=== PATIENT | female | born 1985 | race Caucasian/White ===

== ENCOUNTER → 2023-12-12 13:53 | Outpatient (BNVA) | payer SELFPAY | DX: F31.9 Bipolar disorder, unspecified (principal); F41.9 Anxiety disorder, unspecified | CPT/HCPCS: 85025 ==

== ENCOUNTER 2024-03-03 10:05 | Emergency (ER) | payer MEDICAID, SELFPAY ==
--- NOTE | 2024-03-03 10:10 | XR_ITS ---
WS: [id number] Exam: XR shoulder LT min 2V* [id number] Date/Time of Exam: 03/03/2024 10:21 AM Reason For Exam: injury No fracture or dislocation. The joints appear relatively well-maintained as visualized. Normal soft t issues. XR/XR shoulder LT min 2V* [id number] IMPRESSION: 1. No fracture or other significant finding.
[2024-03-03 10:13] VITALS: BP 144/104; PULSE 80; RESP 18; TEMP 36.4; O2SAT 98; BMI 36.0
[2024-03-03] MEDS: methocarbamol 750 mg Tablet 1500 MG PO (10:24)
[2024-03-03] MEDS: HYDROcodone-acetaminophen 7.5-325 mg Tablet 1 TAB PO (10:24)
--- NOTE | 2024-03-03 10:28 | ED_ITS ---
HPI - Extremity Problem General: Chief complaint: Extremity Injury, Upper Stated complaint: lt shoulder inj Time Seen by Provider: 03/03/24 10:15 Source: patient Mode of arrival: ambulatory Limitations: no limitations History of Present Illness: 38-year-old female states that she had p ulled her baby in bed today with her left arm states she started having some pain in her shoulder after that this was earlier in the week she states that the pain is continue to worsen she states its much worse when she moves her arm or palpates over her shoulder. The pain currently is a 4 out of his improved with rest. Denies any chest pain or shortness of breath Associated symptoms: Deny chest pain, fever(s) or rash Related Data Previous Rx's Medication Instructions Recorded fluoxetine 10 mg capsule (Prozac) 10 mg PO BID #60 caps 12/12/23 lamotrigine 25 mg tablet (Lamictal) 25 mg PO DAILY #30 tabs 12/12/23 methocarbamol 750 mg tablet 750 mg PO Q6H PRN spasms #20 tabs 03/03/24 naproxen 500 mg tablet (Naprosyn) 500 mg PO BID PRN pain #20 tabs 03/03/24 Allergies Allergy/AdvReac Type Severity Reaction Status Date / Time Penicillins Allergy Severe ALGY-Anaphy Verified 12/12/23 13:14 laxis fluconazole [From Diflucan] Allergy Intermediate Swelling Verified 12/12/23 13:14 nitrofurantoin Allergy Intermediate Swelling Verified 12/12/23 13:14 [From Macrobid] propoxyphene [From Darvon] Allergy Intermediate Unknown Verified 12/12/23 13:14 sulfamethoxazole Allergy Intermediate heart rate Verified 12/12/23 13:14 [From Bactrim] tramadol [From Ultram] Allergy Intermediate Unknown Verified 12/12/23 13:14 trimethoprim [From Bactrim] Allergy Intermediate heart rate Verified 12/12/23 13:14 DEPT Vaccine Allergy Severe ADR-Seizure Uncoded 12/12/23 13:14 Review of Systems Const: Denies: fever(s), chills, body aches or change in appetite ENMT: Denies: throat pain or dental pain Card: Denies: chest pain Resp: Denies: dyspnea GI: Denies: abdominal pain, nausea, vomiting or diarrhea Musc: Reports: extremity pain; Denies: neck pain or back pain Skin/Breast: Denies: rash Neuro: Denies: headache(s) PFSH ED PFSH: Medical History Cervical cancer 2005. Lletz, remission since. Hyperlipidemia Hypertension PTSD (post-traumatic stress disorder) Anxiety Bipolar disorder (manic depression) Psychiatric care Surgical History H/O laminectomy History of cholecystectomy H/O spinal fusion Family History Father Cancer Skin Social History Smoking and tobacco/nicotine status: current every day tobacco/nicotine user cigarettes Packs smoked per day: 1 Years cigarettes smoked: 22 Alcohol intake: never Substance/Drug Use: never Adopted: No service: No Current occupational exposures/hazards: No Physical Exam Const: COMMON NORMALS: no acute distress, patient oriented x3 and healthy ap pearing HENMT: COMMON NORMALS: normocephalic and atraumatic HEAD & SCALP: normocephalic and atraumatic Eye: COMMON NORMALS: Equal, round and reactive pupils present and EOMs intact bilaterally PUPIL: Yes Equal, round and reactive pupils present Neck/C-Spine: COMMON NORMALS: full ROM and supple Chest: COMMONS NORMALS: normal inspection of the chest Resp: COMMON NORMALS: normal respiratory effort, No retractions, No use of accessory muscles and clear to auscultation bilaterally AUSCULTATION: clear to auscultation bilaterally Cardio: COMMON NORMALS: regular rate, regular rhythm and No murmurs present (Cardio) RATE: regular rate RHYTHM: regular rhythm GI: COMMON NORMALS: Normal to inspection, nondistended, normoactive bowel sounds present, Soft to palpation, non-tender and no masses PALPATION: Yes Soft to palpation Extremity: COMMON NORMALS: full ROM NARRATIVE EXTREMITY EXAM: Tenderness over left shoulder no obvious deformity distal pulses sensation intac t Neuro: COMMON NORMALS: patient oriented x3, moves all extremities and no focal motor deficits Psych: COMMON NORMALS: mental status grossly normal, Normal thought process present and cooperative THOUGHT PROCESS: Normal thought process present Skin: COMMON NORMALS: no rashes or lesions noted and no wounds GENERAL SKIN EXAM: no rashes or lesions noted Course Vital Signs: Vital signs: Vital Signs Temperature 97.6 F 03/03/24 10:13 Pulse Rate 80 03/03/24 10:13 Respiratory Rate 18 03/03/24 10:13 Blood Pressure 144/104 03/03/24 10:13 Pulse Oximetry 98 03/03/24 10:13 Oxygen Delivery Me thod Room Air 03/03/24 10:13 MDM - Extremity (Nontraumatic) Medical Decision Making Patient presents here with a shoulders pain to her left shoulder is likely a sprain or muscle spasm x-ray shows no fracture we will start her on anti- inflammatories along with muscle relaxants she is to ice she stable for disch arge follow-up with PCP return if worsening Medical Records I reviewed the patient's medical records. Lab Data Radiology Impressions Shoulder X-Ray 03/03/24 10:10 IMPRESSION: 1. No fracture or other significant finding. All radiology interpretation(s) finalized by discharge Discharge Plan Discharge Patient Disposition: Home Clinical Impression: Sprain of left shoulder Qualifiers: Encounter type: initial encounter Condition: Stable Prescriptions: New methocarbamol 750 mg tablet 750 mg PO Q6H PRN (Reason: spasms) Qty: 20 0RF naproxen [Naprosyn] 500 mg tablet 500 mg PO BID PRN (Reason: pain) Qty: 20 0RF No Action lamotrigine [Lamictal] 25 mg tablet 25 mg PO DAILY Qty: 30 0RF fluoxetine [Prozac] 10 mg capsule 10 mg PO BID Qty: 60 0RF Rx Instructions: administer in the morning and at noon/midday Discharge Orders: Discharge ED (Routine); Ordered 03/03/24 Ordered By: Rico Krueger Referrals: Holly Canela NP [Primary Care Provider] - 4-7 days Discharge Diet: Advance as tolerated Discharge Activity: Resume usual activity Patient Instructions: Shoulder Sprain (ED) Coding Level of Care Code ED Director Medical Surgical for Adithya Kang
--- NOTE | 2024-03-03 10:31 | PC.PHAR ---
patient says she takes a clonazepam 1mg but its not on her list, I called the pharmacy and they have no record either
[2024-03-03 11:47] VITALS: BP 109/82; PULSE 78; O2SAT 95
== END 2024-03-03 11:48 | disposition home or self-care (01) ==
PROVIDERS: Emergency Provider Emergency Medicine
DX: S43.402A Unspecified sprain of left shoulder joint, initial encounter (principal); Z85.41 Personal history of malignant neoplasm of cervix uteri; E78.5 Hyperlipidemia, unspecified; I10 Essential (primary) hypertension; F17.210 Nicotine dependence, cigarettes, uncomplicated; X50.9XXA Other and unspecified overexertion or strenuous movements or postures, initial encounter
CPT/HCPCS: 73030; 99283

== ENCOUNTER → 2024-12-08 14:27 | Outpatient (BNVA) | payer OTHER, SELFPAY | PROVIDERS: Visit Provider Psychiatry & Neurology Psychiatry | DX: Z79.899 Other long term (current) drug therapy (principal) | CPT/HCPCS: 80061; 83036 ==

== ENCOUNTER 2025-01-21 12:04 | Emergency (ER) | payer MEDICAID, SELFPAY ==
[2024-12-09 15:06] VITALS: BP 121/93; BMI 36.3
[2025-01-21 12:08] VITALS: BP 125/86; PULSE 91; RESP 16; TEMP 36.4; O2SAT 96; BMI 34.4
--- NOTE | 2025-01-21 12:13 | CT_ITS ---
WS: [id number] CT HEAD NONCONTRAST HISTORY: Symptoms of acute stroke, right-sided numbness. TECHNIQUE: Contiguous axial imaging performed through the brain. Bone and soft tissue windows. Sagittal and coronal reformats reviewed. All CT scans at [facility] use at least one of these dose optimization techniques: automated exposure control; mA and/or kV adjustment per patient size (includes targeted exams where dose is matched to clinical indication); or iterative reconstruction. DLP: 1080.95 mGy COMPARISON: None available. No acute intracranial hemorrhage, midline shift or mass effect. No atrophy or prior infarcts or herniation. Ventricles: Normal size with no hydrocephalus. Very slight ectopia of the cerebellar tonsils. No Chiari malformation. Paranasal sinuses: Mucoperiosteal thickening extensively throughout the sphenoid sinuses, RIGHT greater than LEFT. Mild mucoperiosteal thickening in the posterior LEFT ethmoid air cells. No air-fluid levels. Mastoid air cells: Well pneumatized. Calvarium and scalp: Skull is intact with no soft tissue edema or swelling. CT/CT head thrombolytic [id number] IMPRESSION: 1. No acute intracranial hemorrhage or edema. 2. No prior infarct. 3. No significant small vessel disease. 4. Sphenoid and ethmoid sinus disease. Notified Fortino Minaya DO at 01/21/2025 12:36 PM.
--- NOTE | 2025-01-21 12:13 | ECG_ITS ---
[facility]: 2025-[facility]21 Pat Name: Nereida Ortega Department: Room: Gender: Female [employer] Claim Adjuster: : 1985 Requested By: Fortion Kincaid Order Number: [id number] Mariah MD: Sam Lyon M.D. Measurements Intervals [place] Rate: 82 P: 42 NV: 144 QRS: 44 QRSD: 86 T: 50 QT: 348 QTc: 408 Interpretive Statements SINUS RHYTHM No previous ECG available for comparison Electronically Signed On 01-21-2025 14:05:29 CDT by Sam Lyon M.D. [email or web address]
--- NOTE | 2025-01-21 12:22 | ED_ITS ---
HPI - Neuro Symptoms/Deficit 2 General: Chief Complaint: Weakness Stated Complaint: Possible Stroke Time Seen by Provider: 01/21/25 12:12 History of Present Illness: 39-year-old female presents to the emerg ency room complaining of bilateral upper extremity numbness. She had a stroke 20 some years ago. She states symptoms began last night she has no deficits on arrival she is awake alert active. She denies chest pain or abdominal pain no injury no recent falls or head injury she is not on any anticoagulants Associated symptoms: Deny chest pain Related Data Previous Rx's ?Medication ?Instructions ?Recorded fluoxetine 20 mg capsule (Prozac) 20 mg PO DAILY #30 c aps 12/21/24 hydroxyzine HCl 50 mg tablet 50 mg PO QID PRN itching/ anxiety 12/21/24 #120 tabs lamotrigine 25 mg tablet 25 mg PO DAILY #30 tabs 12/01 07/27 Allergies Allergy/AdvReac Type Severity Reaction Status Date / Time Penicillins Allergy Severe ALGY-Anaphy Verified 01/21/25 12:11 laxis fluconazole (From Diflucan) Allergy Intermediate Swelling Verified 01/21/25 12:11 nitrofurantoin (From Allergy Intermediate Swelling Verified 01/21/25 12:11 Macrobid) propoxyphene (From Darvon) Allergy Intermediate Unknown Verified 01/21/25 12:11 sulfamethoxazole (From Allergy Intermediate heart rate Verified 01/21/25 12:11 Bactrim) tramadol (From Ultram) Allergy Intermediate Unknown Verified 01/21/25 12:11 trimethoprim (From Bactrim) Allergy Intermediate heart rate Verified 01/21/25 12:11 diphtheria, pertussis, Allergy ADR-Seizure Verified 01/21/25 12:11 tetanus vacc ciprofloxacin (From Cipro) AdvReac Severe Rash & Verified 01/21/25 12:11 raised heart rate Review of Systems 2 Const: Denies: fever(s) or chills Card: Denies: chest pain Resp: Denies: dyspnea GI: Denies: abdominal pain : Denies: dysuria, urinary frequency or urinary urgency Musc: Denies: neck pain or back pain Skin/Breast: Denies: rash PFSH ED 2 PFSH: Medical History Cervical cancer 2005. Lletz, remission since. Hyperlipidemia Hypertension PTSD (post-traumatic stress disorder) Anxiety Bipolar disorder (manic depression) Psychiatric care Surgical History H/O laminectomy History of cholecystectomy H/O spinal fusion Family History Father Cancer Skin Social History Smoking and tobacco/nicotine status: current every day tobacco/nicotine user cigarettes Packs smoked per day: 1 Years cigarettes smoked: 22 Alcohol intake: never Substance/Drug Use: never Adopted: No Caregiver/support person: No Lives independently: No Household members: children Housing: Homeless Marital status: Single Number of children: 2 Highest education level completed: Associate Degree: Academic Program service: No Current occupational status: disabled Current occupational exposures/hazards: No Pets and animals: No Leisure activites: other Leisure activities details: nothing right now Sexually active: Yes Do you think of yourself as: Straight/Heterosexual Current gender identity: Female Special amanda needs: No Agree to transfusion: Yes NIH stroke score 2 NIHSS: Level Of Consciousness - 1a: 0 Level Of Consciousness Questions - 1b: Both Correct Level Of Consciousness Commands - 1c: Both Correct Best Gaze - 2: Normal Visual Cunningham - 3: No Visual Loss Facial Palsy - 4: N ormal Motor Arm Right - 5: No Drift Motor Arm Left - 5: No Drift Motor Leg Right - 6: No Drift Motor Leg Left - 6: No Drift Limb Ataxia - 7: A bsent Sensory - 8: Mild To Moderate Loss (Dorsum of left hand not on the palmar surface) Best Language - 9: No Aphasia Dysarthia - 10: Normal E xtinction And Inattention - 11: 0 Score: Total Score: 1 Physical Exam 2 Const: COMMON NORMALS: no acute distress GENERAL APPEARANCE: cooperative and comfortable ORIENTATION/CONSCIOUSNESS: Yes awake, Yes oriented to person, Yes oriented to place and Yes oriented to time HENMT: COMMON NORMALS: normocephalic, atraumatic and hearing grossly normal bilaterally HEAD & SCALP: normocephalic and atraumatic Resp: COMMON NORMALS: normal respiratory effort, No retractions, No use of accessory muscles and clear to auscultation bilaterally AUSCULTATION: clear to auscultation bilaterally Cardio: COMMON NORMALS: regular rate, regular rhythm and No murmurs present (Cardio) RATE: regular rate RHYTHM: regular rhythm GI: COMMON NORMALS: Soft to palpation and No hepatosplenomegaly present A USCULTATION: Yes normoactive bowel sounds PALPATION: Yes Soft to palpation, No Tenderness to palpation present (GI), No Guarding due to palpation present (GI) and Yes No hepatosplenomegaly present Extremity: COMMON NORMALS: normal to inspection, capillary refill normal, no clubbing, cyanosis or edema, no calf tenderness and no pedal edema Neuro: SENSORIUM/ORIENTATION: Yes oriented to person, Yes oriented to place and Yes oriented to time Skin: COMMON NORMALS: no rashes or lesions noted GENERAL SKIN EXAM: no rashes or lesions noted Course 2 Vital Signs: Vital signs: Vital Signs Temperature 97.6 F 01/21/25 12:08 Pulse Rate 78 01/21/25 17:30 Respiratory Rate 20 H 01/21/25 17:30 Blood Pressure 120/82 01/21/25 17:30 Pulse Oximetry 97 01/21/25 16:08 Oxygen Delivery Me thod Room Air 01/21/25 16:08 MDM - Neuro Symptoms/Deficit Medical Decision Making CT head negative. She had some numbness on the posterior aspect of her right hand but only in the area over the 1st and 2nd digit. No other deficits were noted. The remainder of her stroke exam was normal. Believe the 1 point that she gets on her NIH is probably more peripheral neuropathy. We are going to discharge patient however we are waiting for the remainder of her labs and she left AMA Medical Records I reviewed the patient's medical records. Lab Data I reviewed the patient's lab results. 01/21/25 12:37 01/21/25 12:[address] 01/21/25 12:13 IMPRESSION: 1. No acute intracranial hemorrhage or edema. 2. No prior infarct. 3. No significant small vessel disease. 4. Sphenoid and ethmoid sinus disease. Notified Fortino Minaya DO at 01/21/2025 12:36 PM. Laboratory Results WBC 12.94 10^3/uL (3.29-11.43) H 01/21/25 12:37 RBC 5.09 10^6/uL (3.85-5.65) 01/21/25 12:37 Hgb 15.10 g/dL (11.27-16.99) 01/21/25 12:37 Hct 44.2 % (36-47) 01/21/25 12:37 MCV 86.8 fl (85-98) 01/21/25 12:37 MCH 29.7 pg (27-33) 01/21/25 12:37 MCHC 34.2 g/dL (30-55) 01/21/25 12:37 RDW 12.5 % (12.1-15.1) 01/21/25 12:37 Plt Count 334 10^3/cmm (157-399) 01/21/25 12:37 MPV 9.0 fL (7.4-10.4) 01/21/25 12:37 Neut % (Auto) 55.4 % 01/21/25 12:37 Lymph % (Auto) 36.1 % 01/21/25 12:37 Dolores % (Auto) 6.9 % 01/21/25 12:37 Eos % (Auto) 0.8 % 01/21/25 12:37 Baso % (Auto) 0.4 % 01/21/25 12:37 Neut # (Auto) 7.18 10^3/uL (1.8-7.7) 01/21/25 12:37 Lymph # (Auto) 4.7 10^3/uL (0.8-4.8) 01/21/25 12:37 Dolores # (Auto) 0.9 10^3/uL (0.2-0.9) 01/21/25 12:37 Eos # (Auto) 0.1 10^3/uL (0.0-0.8) 01/21/25 12:37 Baso # (Auto) 0.1 10^3/uL (0.0-0.1) 01/21/25 12:37 Nucleated RBC % (auto) 0 % 01/21/25 12:37 Nucleated RBCs # 0.0 /100WBC 01/21/25 12:37 PT 15.60 SECONDS (12.1-14.9) H 01/21/25 12:37 INR 1.16 (0.8-1.2) 01/21/25 12:37 APTT 27.7 SECONDS (23.9-36.7) 01/21/25 12:37 Sodium 142 mmol/L (136-145) 01/21/25 12:37 Potassium 3.4 mmol/L (3.5-5.1) L 01/21/25 12:37 Chloride 108 mmol/L (98-107) H 01/21/25 12:37 Carbon Dioxide 23 mmol/L (22-29) 01/21/25 12:37 Anion Gap 14.4 (5-19) 01/21/25 12:37 BUN 12 mg/dL (6-20) 01/21/25 12:37 Creatinine 0.8 mg/dL (0.5-0.9) 01/21/25 12:37 GFR Calculation 79.4 mL/min (90-130) L 01/21/25 12:37 Glucose 103 mg/dL (65-115) 01/21/25 12:37 POC Glucose 121 mg/dL (70-110) H 01/21/25 12:24 Calculated Osmolality 294 mOsm/kg (285-295) 01/21/25 12:37 Calcium 8.9 mg/dL (8.5-10.5) 01/21/25 12:37 Total Bilirubin 0.3 mg/dL (0.15-1.2) 01/21/25 12:37 AST 19 U/L (0-32) 01/21/25 12:37 ALT 18 U/L (0-33) 01/21/25 12:37 Alkaline Phosphatase 72 U/L (35-105) 01/21/25 12:37 Total Protein 6.7 g/dL (6.6-8.7) 01/21/25 12:37 Albumin 4.0 g/dL (3.5-5.2) 01/21/25 12:37 Globulin 2.7 g/dL (1.3-4.6) 01/21/25 12:37 Urine Color Dark yellow (Yellow) A 01/21/25 12:46 Urine Appearance Cloudy (CLEAR) A 01/21/25 12:46 Urine pH 5.5 (5-7) 01/21/25 12:46 Ur Specific [place] 1.031 (1.005-1.030) H 01/21/25 12:46 Urine Protein 1+ (Negative) A 01/21/25 12:46 Urine Glucose (UA) Negative (Normal) 01/21/25 12:46 Urine Ketones Trace (Negative) 01/21/25 12:46 Urine Blood 2+ (Negative) A 01/21/25 12:46 Urine Nitrate Positive (Negative) A 01/21/25 12:46 Urine Bilirubin Negative (Negative) 01/21/25 12:46 Urine Urobilinogen 1.0 mg/dL (Negative) 01/21/25 12:46 Ur Leukocyte Esterase Trace (Negative) A 01/21/25 12:46 Urine RBC 21-50 /hpf (0-2) H 01/21/25 12:46 Urine WBC 0-5 /hpf (0-5) 01/21/25 12:46 Ur Squamous Epith Cells 0-5 /hpf (0-5) 01/21/25 12:46 Amorphous Sediment Not Reportable 01/21/25 12:46 Urine Bacteria 4+ /hpf (NONE) H 01/21/25 12:46 Hyaline Casts 3.71 /lpf 01/21/25 12:46 Urine Opiates Screen Negative ng/mL (Negative) 01/21/25 12:46 Ur Barbiturates Screen Negative ng/mL (Negative) 01/21/25 12:46 Ur Phencyclidine Scrn Negative ng/mL (Negative) 01/21/25 12:46 Ur Amphetamines Screen Positive ng/mL (Negative) H 01/21/25 12:46 U Benzodiazepines Scrn Negative ng/mL (Negative) 01/21/25 12:46 Urine Cocaine Screen Negative ng/mL (Negative) 01/21/25 12:46 U Marijuana (THC) Screen Negative ng/mL (Negative) 01/21/25 12:46 All radiology interpretation(s) finalized by discharge Discharge Plan Discharge Patient Disposition: Home Clinical Impression: Numbness and tingling in right hand, Methamphetamine use Condition: Stable Prescriptions: No Action fluoxetine [Prozac] 20 mg capsule 20 mg PO DAILY Qty: 30 1RF hydroxyzine HCl 50 mg tablet 50 mg PO QID PRN (Reason: itching/anxiety) Qty: 120 1RF lamotrigine 25 mg tablet 25 mg PO DAILY Qty: 30 1RF Discharge Orders: Discharge ED (Routine); Ordered 01/21/25 Ordered By: Fortino Minaya Referrals: Holly Canela NP [Primary Care Provider, Family Practice] Patient Instructions: Opioid Safety, Pain Management, Patient Portal & Magi Instructions Print Language: Belarusian Coding Level of Care Code ED Dispatcher [employer]inery for Adithya Kang
[2025-01-21 12:39] VITALS: BP 173/102; PULSE 85; RESP 27; O2SAT 95
[2025-01-21 12:42] LABS: Hematocrit 44.2 % (36-47); Hemoglobin 15.10 g/dL (11.27-16.99); Mean Corpuscular HGB Conc 34.2 g/dL (30-55); Mean Corpuscular Hemoglobin 29.7 pg (27-33); Mean Corpuscular Volume 86.8 fl (85-98); Nucleated Red Blood Cells % 0 %; Platelet Count 334 10^3/cmm (157-399); Red Blood Count 5.09 10^6/uL (3.85-5.65); White Blood Count 12.94 10^3/uL (3.29-11.43)
[2025-01-21 12:54] LABS: INR 1.16 (0.8-1.2); Prothrombin Time 15.60 SECONDS (12.1-14.9)
[2025-01-21 12:55] LABS: Partial Thromboplastin Time 27.7 SECONDS (23.9-36.7)
[2025-01-21 12:57] LABS: Glucose Urine UA Negative (Normal); Nitrate Urine Positive (Negative)
[2025-01-21 12:59] LABS: Alanine Aminotransferase 18 U/L (0-33); Albumin Level 4.0 g/dL (3.5-5.2); Alkaline Phosphatase 72 U/L (35-105); Anion Gap 14.4 (5-19); Aspartate Amino Transferase 19 U/L (0-32); Blood Urea Nitrogen 12 mg/dL (6-20); Calcium 8.9 mg/dL (8.5-10.5); Carbon Dioxide 23 mmol/L (22-29); Chloride 108 mmol/L (98-107); Creatinine Clr Calc Pharmacy 113.4455; Globulin 2.7 g/dL (1.3-4.6); Glucose 103 mg/dL (65-115); Osmolality Calculated 294 mOsm/kg (285-295); Potassium 3.4 mmol/L (3.5-5.1); Sodium 142 mmol/L (136-145); Total Protein 6.7 g/dL (6.6-8.7)
[2025-01-21 12:59] LABS: Add Urine Microscopic? YES
[2025-01-21 13:07] LABS: Specific Gravity, Urine 1.031 (1.005-1.030)
[2025-01-21 13:23] LABS: PCP Screen Urine Negative (Negative)
[2025-01-21 14:24] VITALS: BP 119/87; PULSE 72; RESP 17; O2SAT 97
[2025-01-21 15:15] VITALS: BP 120/87; PULSE 67; RESP 20; O2SAT 97
[2025-01-21 16:08] VITALS: BP 118/82; PULSE 77; RESP 16; O2SAT 97
[2025-01-21 17:30] VITALS: BP 120/82; PULSE 78; RESP 20
--- NOTE | 2025-01-21 18:47 | PICC.NOTE ---
upon rounding on pt, pt and children not found in ER room. IV catheter in trash can. this nurse called ER registration, per registration they witnessed pt and x2 children exit facility. ED provider notified.
== END 2025-01-21 17:30 | disposition home or self-care (01) ==
PROVIDERS: Emergency Provider Family Medicine
DX: R20.0 Anesthesia of skin (principal); F15.10 Other stimulant abuse, uncomplicated; F17.210 Nicotine dependence, cigarettes, uncomplicated; E78.5 Hyperlipidemia, unspecified; I10 Essential (primary) hypertension; Z85.41 Personal history of malignant neoplasm of cervix uteri
CPT/HCPCS: 36416; 70450; 80053; 80306; 81001; 82962; 85025; 85610; 85730; 87077; 87086; 87186; 93005; 99284